=== PATIENT | female | born 1955 | race Caucasian/White ===

== ENCOUNTER → 2020-08-23 11:53 | Outpatient (BNVA) | payer OTHER, SELFPAY | PROVIDERS: Family Provider Family Medicine; Visit Provider Nurse Practitioner Family | DX: Z20.828 Contact with and (suspected) exposure to other viral communicable diseases (principal); J06.9 Acute upper respiratory infection, unspecified | CPT/HCPCS: 87635 ==

== ENCOUNTER 2021-11-29 07:44 | Outpatient (CLI) | payer MEDICARE, OTHER, SELFPAY ==
--- NOTE | 2021-11-29 07:54 | MR_ITS ---
WS: [id number] MRI HEAD WITH CONTRAST TECHNIQUE: Sagittal T1, T2 axial, T2 axial FLAIR, axial susceptibility weighted imaging, axial diffus ion weighted images, and coronal T2 images were obtained. Pre and post-T1 axial and post T1 coronal i mages. ADC and FSPGR images. CLINICAL INFORMATION: ANOSMIA/PARAGEUSIA COMPARISON: None. FINDINGS: No evidence of restricted diffusion to suggest acute ischemia. Ventricular system and basal cisterns are patent. Moderate small vessel changes. Mild parenchymal volume loss. Mild small vessel changes in the rj. Normal posterior fossa. Normal vascular flow voids at the skull base. No extra-axial fluid collections. No evidence of mass or mass effect. Paranasal sinuses and mastoid air cells well aerate d. Gyrus rectus and olfactory bulbs are normal in appearance. Normal olfactory tracts. No abnormal si gnal in the olfactory bulbs. No hemosiderin on susceptibly weighted images. Mild symmetric atrophy temporal lobes and hippocampal formations. Incidental venous angioma RIGHT frontal lobe. Normal optic chiasm and pituitary infundibu lum. Normal cavernous sinuses and Meckel's cave. Proximal 7th and 8th cranial nerves are normal in ap pearance. Normal dural venous sinuses. MR/MR head wo/w con [id number] IMPRESSION: 1. No evidence of restricted diffusion to suggest acute ischemia. 2. Moderate small vessel changes with mild parenchymal volume loss. 3. Paranasal sinuses and mastoid air cells well aerated. 4. Gyrus rectus and olfactory bulbs are normal in appearance. Normal olfactory tracts. 5. Visualized proximal 7th and 8th cranial nerves appear normal. 6. Inferior frontal lobes bilaterally are normal in appearance. 7. No hemosiderin on susceptibly weighted images. 8. Incidental venous angioma RIGHT frontal lobe. 9. No abnormal gadolinium enhancement.
== END 2021-11-29 07:45 | disposition home or self-care (01) ==
LOC: RAD 07:50
PROVIDERS: PCP Nurse Practitioner; Visit Provider Specialist
DX: R43.0 Anosmia (principal); R43.2 Parageusia; Q28.3 Other malformations of cerebral vessels
CPT/HCPCS: 70553

== ENCOUNTER → 2023-06-21 11:35 | Outpatient (BNVA) | payer MEDICARE, OTHER, SELFPAY | PROVIDERS: PCP Nurse Practitioner; Visit Provider Family Medicine | DX: Z13.6 Encounter for screening for cardiovascular disorders (principal); R53.83 Other fatigue; H60.541 Acute eczematoid otitis externa, right ear; M54.9 Dorsalgia, unspecified; G89.29 Other chronic pain | CPT/HCPCS: 80053; 80061; 84443; 85025 ==

== ENCOUNTER 2023-07-11 08:37 | Outpatient (CLI) | payer MEDICARE, OTHER, SELFPAY ==
--- NOTE | 2023-07-11 08:59 | MM_ITS ---
WS: [id number] BILATERAL SCREENING DIGITAL TOMOSYNTHESIS MAMMOGRAM WITH CAD HISTORY: screening COMPARISON: None available. Bilateral CC and MLO views with tomosynthesis and synthetic mammography submitted. Computer aided det ection analyzed. Breast composition: The breasts are heterogeneously dense, which may obscure small masses. No suspici ous masses, microcalcifications or architectural distortion. IMPRESSION: MM/[place] [id number] BI-RADS: 1-Negative FOLLOW UP: 1 Year Follow-up
== END 2023-07-11 08:38 | disposition home or self-care (01) ==
PROVIDERS: PCP Family Medicine; Visit Provider Family Medicine
DX: Z12.31 Encounter for screening mammogram for malignant neoplasm of breast (principal)
CPT/HCPCS: 77063; 77067

== ENCOUNTER → 2023-08-13 07:51 | Outpatient (BNVA) | payer MEDICARE, OTHER, SELFPAY | PROVIDERS: PCP Family Medicine; Referring Provider Family Medicine; Visit Provider Surgery | DX: Z12.11 Encounter for screening for malignant neoplasm of colon (principal) | CPT/HCPCS: 99024; 99203 ==

== ENCOUNTER 2023-10-05 08:21 | Day surgery (SDC) | payer MEDICARE, OTHER, SELFPAY ==
[2023-10-05 08:30] VITALS: BMI 21.6
[2023-10-05 08:37] VITALS: BP 171/86; PULSE 68; RESP 18; TEMP 36.3; O2SAT 97
[2023-10-05] MEDS: sodium chloride 0.9% 1,000 ML 30 ML IV (08:40)
--- NOTE | 2023-10-05 08:49 | W.PM.OPSFHP ---
Same Day Surgery H&P Indication for Procedure/HPI DATE OF PROCEDURE: October 05, 2023 CHIEF COMPLAINT/INDICATIONFOR SURGICAL PROCEDURE: need for screening colonoscopy PREOP DIAGNOSIS: need for screening colonoscopy PLANNED PROCEDURE: Operation Date: 10/05/23 09:30 [place] Procedures p 79648 colon G0121 screen colon A risk Z12.11(Not Applicable) - Isak Beaver MD Medications/Allergies* Allergies/Adverse Reactions Allergy/AdvReac Type Severity Reaction Status Date / Time terbinafine Allergy ALGY-Rash Verified 10/03/23 10:21 Current Medications: Generic Name Dose Route Start Last Admin Trade Name Freq PRN Reason Stop Dose Admin Sodium Chloride 1,000 mls @ 30 mls/hr 10/05/23 08:30 10/05/23 08:40 Sodium Chloride 0.9% IV 10/06/23 08:29 30 mls/hr .Q24H DONAVON Administration Pertinent History/Comorbid Conditions* Surgical History (Updated 06/21/23 @ 11:11 by Vandana Dean DO) History of partial hysterectomy Still has right ovary - Family History (Updated 06/21/23 @ 10:32 by Jessica Estrada LPN) Father Mother Diabetes Grandmother CAD (coronary artery disease) Father Cancer Mother breast and liver Social History Smoking and tobacco/nicotine status: current every day tobacco/nicotine user Alcohol intake: never Substance/Drug Use: never Household members: spouse Highest education level completed: Associate Degree: Occupational, Technical, Vocational Program Current occupation: retired Pertinent Exam Findings alert, oriented x 3, clear to auscultation bilaterally and regular rate & rhythm Recommendations Surgery/Procedure today Coding Level of Care Code Acute Code for Chg Fwd
--- NOTE | 2023-10-05 08:54 | ANES.PREANE2 ---
Pre-Anesthetic Assessment Height/Weight: Height 1.73 m Weight 64.41 kg Temp Pulse Resp BP Pulse Ox O2 Del Method 97.3 F L 68 18 171/86 97 Room Air 10/05/23 08:37 10/05/23 08:37 10/05/23 08:37 10/05/23 08:37 10/05/23 08:37 10/05/23 08:37 Preop Diagnosis: need for screening colonoscopy Operation Date: 10/05/23 09:30 [place] 8[address]86 colon G0121 screen colon A risk Z12.11(Not Applicable) - Isak Beaver MD Familial anesthetic complications: None Was Beta Tracey taken within 24 hours: N/A Was Clonidine taken within 24 hours: N/A Last intake: Intake Last Liquid Date 10/04/23 Last Liquid Time 22:00 Last Solid Date 10/03/23 Social No alcohol and No tobacco Exam alert, oriented x 3, clear to auscultation bilaterally and regular rate & rhythm Airway Mallampati: Class III Dentition: other (missing) Anesthetic Plan ASA status: 1 Anesthesia: MAC Risk of > 500 ml blood loss (7ml/kg in children): No Medications/Allergies Home Medications Medication Instructions Recorded Confirmed Last Taken Type triamcinolone acetonide 0.1 % 1 applic topical BID PRN itching 06/21/23 10/03/23 10/03/23 Rx topical cream #15 grams meloxicam 15 mg tablet 15 mg PO DAILY #90 tabs 07/17/23 10/03/23 10/03/23 Rx Allergies Allergy/AdvReac Type Severity Reaction Status Date / Time terbinafine Allergy ALGY-Rash Verified 10/03/23 10:21 Current Medications Generic Name Dose Route Start Last Admin Trade Name Freq PRN Reason Stop Dose Admin Sodium Chloride 1,000 mls @ 30 mls/hr 10/05/23 08:30 10/05/23 08:40 Sodium Chloride 0.9% IV 10/06/23 08:29 30 mls/hr .Q24H DONAVON Administration PFSH Anesthesia Surgical History History of partial hysterectomy Still has right ovary - Family History Grandmother Diabetes Mother Cancer breast and liver Father CAD (coronary artery disease) Social History Smoking and tobacco/nicotine status: current every day tobacco/nicotine user Alcohol intake: never Substance/Drug Use: never Household members: spouse Highest education level completed: Associate Degree: Occupational, Technical, Vocational Program Current occupation: retired Data Anesthesia Cardiac Studies: No Data to Display
[2023-10-05 10:47] VITALS: BP 156/70; PULSE 56; RESP 12; TEMP 36.1; O2SAT 100
[2023-10-05 11:00] VITALS: BP 127/94; PULSE 54; RESP 16; O2SAT 98
== END 2023-10-05 11:15 | disposition home or self-care (01) ==
PROVIDERS: PCP Family Medicine; Visit Provider Surgery
PROC: 0DJD8ZZ Inspection of Lower Intestinal Tract, Via Natural or Artificial Opening Endoscopic (ICD-10-PCS; CPT 45378; principal; 2023-10-05 09:30)
DX: Z12.11 Encounter for screening for malignant neoplasm of colon (principal); K63.5 Polyp of colon; D12.8 Benign neoplasm of rectum; F17.210 Nicotine dependence, cigarettes, uncomplicated
CPT/HCPCS: 45380; 45385; 88305; J2704; J7030

== ENCOUNTER → 2023-10-12 12:30 | Outpatient (BNVA) | payer MEDICARE, OTHER, SELFPAY | PROVIDERS: PCP Family Medicine; Visit Provider Surgery | DX: Z09 Encounter for follow-up examination after completed treatment for conditions other than malignant neoplasm (principal) | CPT/HCPCS: 99213 ==

== ENCOUNTER → 2024-01-24 09:25 | Outpatient (BNVA) | payer MEDICARE, OTHER, SELFPAY | PROVIDERS: PCP Family Medicine; Visit Provider Family Medicine | DX: M54.6 Pain in thoracic spine (principal); G89.29 Other chronic pain; B35.1 Tinea unguium | CPT/HCPCS: 80053 ==

== ENCOUNTER → 2024-05-30 08:37 | Outpatient (BNVA) | payer MEDICARE, OTHER, SELFPAY | DX: Z76.89 Persons encountering health services in other specified circumstances (principal); B35.1 Tinea unguium | CPT/HCPCS: 80053; 85025 ==

== ENCOUNTER → 2024-12-22 08:41 | Outpatient (BNVA) | payer MEDICARE, OTHER, SELFPAY | PROVIDERS: PCP Family Medicine; Visit Provider Family Medicine | DX: Z13.6 Encounter for screening for cardiovascular disorders (principal) | CPT/HCPCS: 80053; 80061; 83036 ==

== ENCOUNTER 2024-12-31 07:56 | Outpatient (CLI) | payer MEDICARE, OTHER, SELFPAY ==
--- NOTE | 2024-12-31 08:20 | MM_ITS ---
WS: [id number] BILATERAL SCREENING DIGITAL TOMOSYNTHESIS MAMMOGRAM WITH CAD HISTORY: screening COMPARISON: 07/11/2023 Bilateral CC and MLO views with tomosynthesis and synthetic mammography submitted. Computer aided detection analyzed. Breast composition: The breasts are extremely dense, which lowers the sensitivity of mammography. No suspicious masses, microcalcifications or architectural distortion. Coarse benign calcification medial LEFT breast is stable. MM/MM scr BI tomosynthesis [id number] IMPRESSION: BI-RADS: 2 - Benign FOLLOW UP: 1 Year Follow-up
--- NOTE | 2024-12-31 09:00 | CT_ITS ---
WS: [id number] LDCT LUNG CANCER SCREENING TECHNIQUE: Noncontrast CT of the chest with coronal and sagittal reformatted images. CLINICAL INFORMATION: screening COMPARISON: None. DLP: 46.60 mGy.cm DIvol: Mean CTDIvol: 0.70 (mGy) All CT scans at [facility] use at least one of these dose optimization techniques: automated exposure control; mA and/or kV adjustment per patient size (includes targeted exams where dose is matched to clinical indication); or iterative reconstruction. FINDINGS: Hyperinflation. Fibrosis in the lung apices. A few calcified granulomas. Mild chronic emphysematous changes. Nodular pleural parenchymal fibrosis in the RIGHT upper lobe posteriorly and laterally. Adjacent nodularity with small nodules largest measuring 5 mm. Aortic calcification. Coronary calcification. No mediastinal or hilar lymphadenopathy. No axillary lymphadenopathy. Adrenal glands are normal. Normal noncontrast liver. Normal GE junction. Mild thoracic curve and kyphosis. Schmorl's nodes in the thoracic spine. CT/CT lung screening [id number] IMPRESSION: Recommend 6-month follow-up of the RIGHT upper lobe nodularity cons idering no comparisons. LUNG-RADS: 3-Probably Benign FOLLOW UP: 6 Month LDCT
== END 2024-12-31 07:57 | disposition home or self-care (01) ==
PROVIDERS: PCP Family Medicine; Visit Provider Family Medicine
DX: Z12.31 Encounter for screening mammogram for malignant neoplasm of breast (principal); Z12.2 Encounter for screening for malignant neoplasm of respiratory organs; F17.219 Nicotine dependence, cigarettes, with unspecified nicotine-induced disorders; R92.343 Mammographic extreme density, bilateral breasts; R92.1 Mammographic calcification found on diagnostic imaging of breast; R91.8 Other nonspecific abnormal finding of lung field; J84.10 Pulmonary fibrosis, unspecified; J43.8 Other emphysema; I70.0 Atherosclerosis of aorta; I25.10 Atherosclerotic heart disease of native coronary artery without angina pectoris; M43.8X4 Other specified deforming dorsopathies, thoracic region; M40.294 Other kyphosis, thoracic region; M51.44 Schmorl's nodes, thoracic region
CPT/HCPCS: 71271; 77063; 77067

== ENCOUNTER → 2025-01-22 08:54 | Outpatient (BNVA) | payer MEDICARE, OTHER, SELFPAY | PROVIDERS: PCP Family Medicine; Visit Provider Family Medicine | DX: E87.5 Hyperkalemia (principal) | CPT/HCPCS: 80048 ==

== ENCOUNTER 2025-04-24 10:18 | Outpatient (CLI) | payer MEDICARE, OTHER, SELFPAY ==
--- NOTE | 2025-04-24 10:26 | XR_ITS ---
WS: [id number] XR lumbar spine 2-3V* [id number] REASON FOR EXAM: acute low back pain with sciatica FINDINGS: Mild rotatory levoscoliosis. No significant compression deformity or focal lesion of the lumbar vertebrae. Moderate narrowing of the L1 3 L4 disc space and the L5-S1 disc space. Mild endplate sclerosis and osteophytosis L2-L5. No spondylolysis. No significant spondylolisthesis. XR/XR lumbar spine 2-3V* [id number] IMPRESSION: Moderate degenerative spondylosis as above.
== END 2025-04-24 10:19 | disposition home or self-care (01) ==
LOC: RAD 10:20
PROVIDERS: PCP Family Medicine; Visit Provider Family Medicine
DX: M47.816 Spondylosis without myelopathy or radiculopathy, lumbar region (principal)
CPT/HCPCS: 72100

== ENCOUNTER → 2025-06-19 09:05 | Outpatient (BNVA) | payer MEDICARE, OTHER, SELFPAY | PROVIDERS: PCP Family Medicine; Visit Provider Family Medicine | DX: I10 Essential (primary) hypertension (principal) | CPT/HCPCS: 80048 ==

== ENCOUNTER 2025-07-08 11:45 | Outpatient (CLI) | payer MEDICARE, OTHER, SELFPAY ==
--- NOTE | 2025-07-08 12:00 | CT_ITS ---
WS: [id number] CT chest wo con [id number] REASON FOR EXAM: Lung Nodule IV CONTRAST ADMINISTERED: None. TECHNIQUE: Multiple axial images without intravenous contrast enhancement. Coronal and sagittal reconstructions. Comparison examination low dose lung screening CT examination 12/31/2024. TOTAL EXAM DLP: 240.[address] scans at [facility] use at least one of these dose optimization techniques: automated exposure control; mA and/or kV adjustment per patient size (includes targeted exams where dose is matched to clinical indication); or iterative reconstruction. FINDINGS: Central lobar emphysema and subpleural bullous formation. No change from the previous examination. Complex abnormality in the upper most right upper lobe with subpleural bullous disease, central lobar emphysema, pleural thickening and 3 areas of complex shape nodularity in the subpleural pulmonary parenchyma posteriorly. As best as can be ascertained this complex region of abnormality is table without interval enlargement of the pulmonary parenchymal abnormalities. New 6 mm nodule in the anterior right lower lobe. No adenopathy or other mass. The remainder of the chest is unchanged compared to the previous examination. CT/CT chest wo con [id number] IMPRESSION: Complex abnormality in the uppermost right lung which on 6-month follow-up appe ars unchanged but still concerning. Additionally there is a new nodule in the r ight lower lung. Recommend follow-up noncontrast low-dose screening chest CT in 6 months. L RADS 3.
== END 2025-07-08 11:46 | disposition home or self-care (01) ==
LOC: RAD 11:47
PROVIDERS: PCP Family Medicine; Visit Provider Family Medicine
DX: R91.8 Other nonspecific abnormal finding of lung field (principal); J43.9 Emphysema, unspecified
CPT/HCPCS: 71250

== ENCOUNTER → 2025-07-15 09:06 | Outpatient (BNVA) | payer MEDICARE, OTHER, SELFPAY | PROVIDERS: PCP Family Medicine; Visit Provider Internal Medicine | DX: R91.1 Solitary pulmonary nodule (principal); J43.9 Emphysema, unspecified; Z87.891 Personal history of nicotine dependence; R91.8 Other nonspecific abnormal finding of lung field | CPT/HCPCS: 99204; Q3014 ==

== ENCOUNTER 2025-07-24 10:09 | Outpatient (CLI) | payer MEDICARE, OTHER, SELFPAY ==
--- NOTE | 2025-07-24 10:30 | PETR_ITS ---
PROCEDURE INFORMATION: Exam: PET/CT Skull Base to Mid-thigh Exam date and time: 07/24/2025 11:50 AM Age: 69 years old Clinical indication: Abnormal findings; Right lung nodule LABS AND CLINICAL REPORTS: Glucose: 112 mg/dl Treatment strategy for malignancy (PET staging): Initial Staging (PI) TECHNIQUE: Imaging protocol: Following at least four-hour fasting and following the injection of radiopharmaceutical, low dose CT images were obtained. Then, PET images were obtained. Attenuation corrected images were constructed using the CT scan. Fused images of PET and CT were reviewed. The standardized uptake values (SUV) reported below are maximum values within a region of interest, expressed in gm/ml. Exam includes orbital meatal line to mid-thigh. SUV normalization method: BodyWeight Radiopharmaceutical: 10.63 mCi F-18 FDG (Fluorodeoxyglucose), IV. Time of imaging post radiopharmaceutical administration: 56 minutes Injection site: LEFT AC COMPARISON: CT chest wo con [id number] 07/08/2025 12:05 PM, CT chest 12/31/2024 FINDINGS: Brain: Uptake in the pituitary sella is noted, SUV max 13.9 on PET image 8. Pharynx: No abnormal uptake. Larynx: No abnormal uptake. Lungs, pleura and trachea: Areas of similar in morphology pleural-based patchy and somewhat nodular density in the lateral right upper lobe are identified with elevated uptake, SUV max 3.5 on image 86 corresponding to nodularity measuring 2.2 x 1.0 cm, and SUV max 2.7 more superiorly in the region of nodularity measuring 2.3 x 1.0 cm. A solid nodule in the posterior right upper lobe adjacent to the major fissure measuring 6 mm in diameter on series 202, image 81 is present, SUV max 1.6. A solid anterior right lower lobe nodule measuring [address] image 124 is not radiotracer avid. Mild to moderate peripheral bullous versus paraseptal emphysematous changes are noted at the bilateral lung apices. A left upper lobe calcified granuloma is present. Mild non radiotracer avid biapical pleural scarring is identified. Heart: Normal physiologic uptake. Mediastinal space: No abnormal uptake. Liver: No abnormal uptake. Gallbladder and biliary ducts: No abnormal uptake. Numerous stones in the gallbladder are identified. Pancreas: No abnormal uptake. Spleen: No abnormal uptake. Adrenal glands: Uptake within the left adrenal gland is noted without a corresponding nodule on the CT images, SUV max 6.5 on image 153. Unremarkable right adrenal gland. Kidneys and ureters: Normal physiologic uptake. Extensive left hydronephrosis is noted with dilatation of the renal pelvis. No significant dilatation of the left ureter is identified. This appears new since the prior CT chest of 07/08/2025. Stomach and bowel: No abnormal uptake. Vasculature: No abnormal uptake. Lymph nodes: Elevated uptake is noted in mediastinal and bilateral hilar lymph nodes, SUV max 7.0 on PET image 97 corresponding to a lymph node measuring 9 mm in short axis on the CT images. Additional examples: A precarinal lymph node measuring 1.1 cm in short axis on CT image 96 demonstrates an SUV max 6.0. Skeleton: Uptake in the right maxilla is noted on the right, SUV max 6.5 on PET image 26, and anteriorly on the right and left, SUV max 4.2 on the right and SUV max 3.2 on the left on series 301 images 31 and 30, respectively. These regions of uptake are associated with teeth demonstrating periapical lucencies. Mild uptake along the anterior left glenohumeral joint capsule is likely inflammatory. Soft tissues: No abnormal uptake in the visualized head, neck, chest, abdomen, pelvis, and extremities. METRICS: Mediastinal blood pool: SUV max 2.8, SUV mean 2.4 Liver uptake: SUV max 3.2, SUV mean 2.8 PET/PET skull to thigh INIT [id number] IMPRESSION: 1. Mild uptake within radiotracer avid areas of pleural-based patchy density and nodularity the right upper lobe are noted, which can be related to infectious, inflammatory or malignant etiologies. 2. A small solid nodule adjacent to the major fissure in the right upper lobe is not radiotracer avid and a small right lower lobe nodule is not radiotracer avid. Assessment of small nodules can be limited by PET-CT. 3. Radiotracer avid mediastinal and bilateral hilar lymph nodes are identified concerning for possible malignancy. 4. Left adrenal gland uptake is identified without evidence of a mass or nodularity on the CT images. This uptake may be inflammatory in nature. A malignant etiology is less likely but not excluded. 5. Elevated uptake at the apices of several maxillary teeth are noted, likely related to benign periodontal disease. 6. Uptake in the pituitary fossa is present, which can be related to inflammatory or malignant etiologies. Consider dedicated brain MRI with and without contrast with pituitary protocol for further assessment. 7. New left hydronephrosis and prominence of the left renal pelvis without evidence of a discrete obstructing lesion on the noncontrast CT images. Consider dedicated CT urography for further assessment.
== END 2025-07-24 10:10 | disposition home or self-care (01) ==
PROVIDERS: PCP Family Medicine; Visit Provider Internal Medicine
DX: R91.8 Other nonspecific abnormal finding of lung field (principal); K80.20 Calculus of gallbladder without cholecystitis without obstruction; R59.1 Generalized enlarged lymph nodes; E27.8 Other specified disorders of adrenal gland; R93.0 Abnormal findings on diagnostic imaging of skull and head, not elsewhere classified; E23.6 Other disorders of pituitary gland; N13.30 Unspecified hydronephrosis
CPT/HCPCS: 78815; A9552

== ENCOUNTER → 2025-08-10 10:11 | Outpatient (BNVA) | payer MEDICARE, OTHER, SELFPAY | PROVIDERS: PCP Family Medicine; Visit Provider Internal Medicine | DX: J43.9 Emphysema, unspecified (principal); R59.0 Localized enlarged lymph nodes; R91.8 Other nonspecific abnormal finding of lung field; Z87.891 Personal history of nicotine dependence | CPT/HCPCS: 99214; Q3014 ==

== ENCOUNTER → 2025-09-08 08:28 | Outpatient (BNVA) | payer MEDICARE, OTHER, SELFPAY | PROVIDERS: PCP Family Medicine; Visit Provider Family Medicine | DX: I10 Essential (primary) hypertension (principal) | CPT/HCPCS: 80048; 85025 ==

== ENCOUNTER → 2025-09-14 12:42 | Outpatient (BNVA) | payer MEDICARE, OTHER, SELFPAY | PROVIDERS: PCP Family Medicine; Referring Provider Internal Medicine; Visit Provider Internal Medicine Cardiovascular Disease | DX: I10 Essential (primary) hypertension (principal); I49.8 Other specified cardiac arrhythmias; R94.31 Abnormal electrocardiogram [ECG] [EKG] | CPT/HCPCS: 93005 ==

== ENCOUNTER 2025-09-16 07:12 | Day surgery (SDC) | payer MEDICARE, OTHER, SELFPAY ==
[2025-09-16] VITALS (11 sets, daily range): BP systolic 123–147; BP diastolic 72–106; PULSE 70–87; RESP 12–20; TEMP 36.1–36.4; O2SAT 95–100; BMI 23.2
--- NOTE | 2025-09-16 06:51 | P.ANESASSM_ITS ---
Pre-Anesthetic Assessment Height/Weight: Height 5 ft 8 in Preop Diagnosis: Lung nodules Operation Date: 09/16/25 09:00 Proposed Procedures p Ebus - Bronch with EBUS(Not Applicable) - Lashanda Gan MD s Bronchoscopy(Not Applicable) - Lashanda Gan MD Was Beta Tracey taken within 24 hours: N/A Was Clonidine taken within 24 hours: N/A Social No alcohol and No tobacco Exam alert, oriented x 3, clear to auscultation bilaterally and regular rate & rhythm Airway Submandibular: within normal limits Cervical ROM: within normal limits Mallampati: Class II Dentition: full Anesthetic Plan ASA status: 3 Anesthesia: General Other: No prior issues with anesthesia NPO since yesterday evening History of hypertension on chlorthalidone [id number] smoking history, quit smoking in February of this year Right upper lobe constellation Patient states that she is able to get around okay and do all her ADLs Plan for general anesthesia Medications/Allergies Home Medications ?Medication ?Instructions ?Recorded ?Confirmed ?Last Taken ?Type efinaconazole 10 % topical 1 applic topical DAILY 48 w eeks #8 05/30/24 09/14/25 09/14/25 Rx solution with applicator (Jublia) mL celecoxib 200 mg capsule (Celebrex) 200 mg PO DAILY #9 0 caps 08/17/25 09/14/25 09/14/25 Rx chlorthalidone 25 mg tablet 25 mg PO DAILY #90 tabs 09/14/25 09/14/25 Rx Allergies Allergy/AdvReac Type Severity Reaction Status Date / Time terbinafine Allergy ALGY-Rash Verified 09/16/25 07:23 [facility] Anesthesia Medical History (Updated 09/08/25 @ 08:30 by Vandana Dean DO) Emphysema lung Surgical History History of partial hysterectomy Still has right ovary - Family History Grandmother Diabetes Mother Cancer breast and liver Father CAD (coronary artery disease) Social History Smoking and tobacco/nicotine status: former use of tobacco/nicotine (1 ppd X 50 years, Quit February 2025) Alcohol intake: never Substance/Drug Use: never Adopted: No Household members: spouse Highest education level completed: Associate Degree: Occupational, Technical, Vocational Program service: No Current occupation: retired Current occupational exposures/hazards: No
--- NOTE | 2025-09-16 07:01 | SUR.OPER ---
DISPOSABLE BRONCH LOT #[id number] [place] #[id number]
[2025-09-16 07:51] LABS: Hematocrit 44.2 % (36-47); Hemoglobin 14.10 g/dL (11.27-16.99); Mean Corpuscular HGB Conc 31.9 g/dL (30-55); Mean Corpuscular Hemoglobin 30.6 pg (27-33); Mean Corpuscular Volume 95.9 fl (85-98); Nucleated Red Blood Cells % 0 %; Platelet Count 231 10^3/cmm (157-399); Red Blood Count 4.61 10^6/uL (3.85-5.65); White Blood Count 5.31 10^3/uL (3.29-11.43)
[2025-09-16 08:03] LABS: INR 0.92 (0.8-1.2); Prothrombin Time 13.00 SECONDS (12.1-14.9)
--- NOTE | 2025-09-16 08:39 | W.PM.OPSUD ---
Surgery/Procedure H&P Update DATE OF PROCEDURE: September 16, 2025 DATE H&P PERFORMED: 08/10/25 H&P UPDATE INFORMATION: Risks and benefits of the procedure reviewed PREOP DIAGNOSIS: Lung nodules PLANNED PROCEDURE: Surgery/Procedure H&P Update DATE OF PROCEDURE: 09/16/25 DATE H&P PERFORMED: 08/10/25 CHANGES TO PREVIOUS DOCUMENTATION: Patient was seen and examined. No significant changes since I saw in the clinic. We will proceed with bronchoscopy as we planned. PREOP DIAGNOSIS: mediastinal and hilar lymphednopathy PRIMARY INDICATION FOR PROCEDURE: mediastinal and hilar lymphednopathy PLANNED PROCEDURE: Operation Date: 09/16/25 9 am Proposed Procedures EBUS bronchoscopy with POSSIBLE Biopsy [id number], 63287, 29846, 53152, 86289, 198.4 - Lashanda Gan MD Operation Date: 07/29/25 09:00 Proposed Procedures p Bronchoscopy [id number] [id number] 17423 15738 R91. - Lashanda Gan MD s Ebus - Lashanda Gan MD Operation Date: 09/16/25 09:00 Proposed Procedures p Ebus - Bronch with EBUS(Not Applicable) - Lashanda Gan MD s Bronchoscopy(Not Applicable) - Lashanda Gan MD
--- NOTE | 2025-09-16 08:58 | P.HP_ITS ---
Providers/Chief Complaint 2 Primary Care Provider: Vandana Dean DO Chief Complaint: R91.1 History of Present Illness Grace Henson is a 69 year old female initially on 08/10/25 The patient presents to discuss lung nodules identified on recent imaging referred by Dr Dean Reports quitting cigarette smoking in February after approximately 50 years of smoking. Denies a prior diagnosis of chronic obstructive pulmonary disease (COPD) or asthma. Currently denies daily shortness of breath or cough and reports no recent need for antibiotics or steroids for respiratory issues. Hearing difficulty noted during the visit; preferences expressed to avoid a needle biopsy at this time. A positron emission tomography (PET) scan was discussed and accepted, with agreement to follow up to review results. Prior computed tomography (CT) scans performed in December and July showed persistent nodules per discussion during the visit. - Former cigarette smoker; quit in February after approximately 50 years of smoking 08/10/2025 Discussed results of PET scan showing increased uptake in mediastinal and hilar nodes. Denies any increased cough or shortness of breath. 09/16/25 Patient presents to the hospital for bronchoscopy under general anesthesia. no complains today of any increased cough or shortness of breath Data: PET scan 07/24/25-increased uptake noted in the right upper lobe SUV of 3.5, no other nodularity 2.2 cm SUV of 2.5. Mediastinal and hilar lymph nodes SUV max of 7.0 precarinal lymph node 1.1 cm in size 6. Also uptake in the right maxilla SUV max of 6.5. CT chest 07/08/2025- Central lobar emphysema and subpleural bullous formation. No change from the previous examination. Complex abnormality in the upper most right upper lobe with subpleural bullous disease, central lobar emphysema, pleural thickening and 3 areas of complex shape nodularity in the subpleural pulmonary parenchyma posteriorly. As best as can be ascertained this complex region of abnormality is table without interval enlargement of the pulmonary parenchymal abnormalities. New 6 mm nodule in the anterior right lower lobe 12/31/2024- Hyperinflation. Fibrosis in the lung apices. A few calcified granulomas. Mild chronic emphysematous changes. Nodular pleural parenchymal fibrosis in the RIGHT upper lobe posteriorly and laterally. Adjacent nodularity with small nodules largest measuring 5 mm Medications/Allergies Home Medications ?Medication ?Instructions ?Recorded ?Confirmed ?Last Taken ?Type efinaconazole 10 % topical 1 applic topical DAILY 48 w eeks #8 05/30/24 09/16/25 09/16/25 Rx solution with applicator (Jublia) mL celecoxib 200 mg capsule (Celebrex) 200 mg PO DAILY #9 0 caps 08/17/25 09/16/25 09/15/25 Rx chlorthalidone 25 mg tablet 25 mg PO DAILY #90 tabs 09/16/25 09/15/25 Rx Allergies Allergy/AdvReac Type Severity Reaction Status Date / Time terbinafine Allergy ALGY-Rash Verified 09/16/25 07:23 PFSH Acute 2 PFSH: Medical History (Updated 09/16/25 @ 09:00 by Lashanda Gan MD) Mediastinal lymphadenopathy Emphysema lung Surgical History History of partial hysterectomy Still has right ovary - Family History Grandmother Diabetes Mother Cancer breast and liver Father CAD (coronary artery disease) Social History Smoking and tobacco/nicotine status: former use of tobacco/nicotine (1 ppd X 50 years, Quit February 2025) Alcohol intake: never Substance/Drug Use: never Adopted: No Household members: spouse Highest education level completed: Associate Degree: Occupational, Technical, Vocational Program service: No Current occupation: retired Current occupational exposures/hazards: No Vitals/I&O/Wt Last Vital Signs Temp 97.0 F L 09/16/25 07:25 Pulse 87 09/16/25 07:25 Resp 18 09/16/25 07:25 BP 131/74 09/16/25 07:25 Pulse Ox 95 09/16/25 07:25 O2 Del Method Room Air 09/16/25 07:25 Weight last 48 hrs Weight 153 lb Physical Exam 2 Narrative: General: alert, NAD HEENT: conj clear, EOMI, PERRL Neck: supple Pulmonary: Diminished breath sounds bilaterally Cardiovascular: rrr, nl s1s2, no mrg Abdomen: soft, nt, nd, no r/g, Extremities: pulses +, 1 + edema Skin: no rash Neurologic: grossly intact Data 09/16/25 07:43 A&P Assessment and plan 1. Nodule of upper lobe of right lun. Emphysema lun. Mediastinal lymphadenopathy: Plan: Pulmonary nodules-right upper lobe constellation and then a new 1 in the right lower lobe 6 mm in size: Lung nodules discussed based on CT scans from December and July showing persistence. PET scan utility and implications reviewed; biopsy discussed but deferred per patient preference at this time. -I reviewed PET scan and explained the findings showing minimal uptake in the lung nodules Mediastinal and hilar lymphadenopathy -Very suspicious for metastatic malignancy although underlying pulmonary infections cannot be ruled out. - I discussed an endobronchial ultrasound-guided bronchoscopy, explained risks of pneumothorax, bleeding and in rare cases cardiopulmonary collapse and . Patient agrees and wishes to proceed PDMP PDMP Reviewed: Not Reviewed Attestations 2 Medical Necessity Statement*: obs only since it is an outpatient procedure Coding Level of Care Code Acute Code for Chg Fwd Diagnoses Nodule of upper lobe of right lung R91.1 Emphysema lung J43.9 Mediastinal lymphadenopathy R59.0
[2025-09-16] MEDS: EPINEPHrine 1 MG in sodium chloride 0.9% (100 ml) 19 ML XX (10:04)
--- NOTE | 2025-09-16 10:20 | P.OP_ITS ---
Documented by User: Lashanda Gan MD 09/16/25 18:04 Procedure: Flexible bronchoscopy with complete mediastinal staging Attending: Lashanda Gan MD Indication: Mediastinal Lymphedenopathy Anesthesia: General anesthesia per anesthesia team Procedure: Pre-Anesthesia Assessment [place] Protocol: Pre-procedure Verification: Prior to the procedure, the patient's identity was confirmed using full name, date of , and medical record number. Identity verification included a review of all relevant medical records, history, physical examination, medications, allergies, and previous anesthesia tolerance. Risks, benefits, sedation options, and associated risks were reviewed with the patient, and informed consent was obtained after addressing all questions. Time-Out: Immediately before the procedure, a time-out was conducted to confirm patient identification, procedure details, consent, image labeling, and the need for prophylactic antibiotics. This was verified by the physician, nurse, anesthesiologist, and remote sensing technologist. Outcome: The procedure was completed without difficulty, and the patient tolerated it well. Findings: A thorough airway exam was performed after passage of the bronchoscope. The trachea was anatomically normal. The right sided airway was anatomically normal without endobronchial lesions. No secretions. The left sided airway was anatomically normal without endobronchial lesions. No secretions. The prior bronchoscope was removed from the airway and the EBUS scope was inserted. A complete curvilinear EBUS procedure was performed of the following lymph nodes: Level 11R station was identified. No nodes met size criteria for biopsy. Level 4R station was identified. No nodes met size criteria for biopsy. Level 7 station was identified with the EBUS scope at the medial LMSB/RMSB and 6 passes were made using a 21G Olympus TBNA needle. Level 4L station was identified. No nodes met size criteria for biopsy. Level 11L station was identified. No nodes met size criteria for biopsy. [place] Bleeding Scale Grade 1: Suctioning <1 minute. Bleeding of no clinical consequence to patient or provider. Following completion of all diagnostic and therapeutic procedures, hemostasis was verified. The scope was removed and procedure concluded. In summary, the following procedures were performed: [id number] cEBUS 1-2 lesions, (Central curvelinear EBUS 1-2 lesions) Lashanda Gan MD Pulmonary and Critical Care Documented by User: [email or web address] Yates 09/16/25 12:32
--- NOTE | 2025-09-16 10:37 | XR_ITS ---
WS: [id number] XR chest 1V portable [id number] REASON FOR EXAM: post bronchoscopy/EBUS FINDINGS: Lung apices suboptimally evaluated. No pneumothorax is identified. Mild tortuosity and ectasia of the thoracic aorta with normal heart size. Multiple areas of lucency in the upper lung funk compatible with central lobar emphysema. Calcified granulomas disease bilaterally. No acute pulmonary parenchymal or pleural abnormality. The complex abnormalities in the lung apices, most notably in the right, are not readily identified on this examination however, the apices are not clearly demonstrated on this examination. XR/XR chest 1V portable [id number] IMPRESSION: No pneumothorax or other acute abnormality.
--- NOTE | 2025-09-16 11:30 | ANE.PACU2 ---
Inpatient post-anesthesia follow up: Airway intact: Yes Vital signs: Temperature 97.6 F Pulse Rate 78 Respiratory Rate 15 Blood Pressure 123/105 Pulse Oximetry 95 Oxygen Delivery Me thod Room Air Oxygen Flow Rate 8 Fraction of Inspir ed Oxygen Hydration adequate: Yes Nausea and vomiting: No Pain level: 1 Mental status: Baseline
== END 2025-09-16 11:30 | disposition home or self-care (01) ==
PROVIDERS: PCP Family Medicine; Visit Provider Internal Medicine
PROC: BB4BZZZ Ultrasonography of Pleura (ICD-10-PCS; principal; 2025-09-16 09:00)
PROC: 0BJ08ZZ Inspection of Tracheobronchial Tree, Via Natural or Artificial Opening Endoscopic (ICD-10-PCS; CPT 31622; 2025-09-16 09:00)
DX: R59.1 Generalized enlarged lymph nodes (principal); Z87.891 Personal history of nicotine dependence; J43.8 Other emphysema; I10 Essential (primary) hypertension
CPT/HCPCS: 31652; 36415; 71045; 85025; 85610; 88305; A9270; J0169; J1100; J2405; J2704; J3010; J3490; J7030

== ENCOUNTER → 2025-09-22 13:15 | Outpatient (BNVA) | payer MEDICARE, OTHER, SELFPAY | PROVIDERS: PCP Family Medicine; Visit Provider Internal Medicine | DX: R91.1 Solitary pulmonary nodule (principal); J43.9 Emphysema, unspecified; R91.8 Other nonspecific abnormal finding of lung field; R59.0 Localized enlarged lymph nodes; I45.10 Unspecified right bundle-branch block; Z87.891 Personal history of nicotine dependence | CPT/HCPCS: 99214; Q3014 ==